=== PATIENT | male | born 1950 | race Caucasian/White ===

== ENCOUNTER 2016-11-15 09:01 | Outpatient (CLI) | payer MEDICARE, OTHER ==
[2016-11-15 12:30] LABS: #Lymphocytes 1.7 thou/uL (1.20-3.40); #Monocytes 0.5 thou/uL (0.11-0.59); #Neutrophils 1.2 thou/uL (1.40-6.50); %Basophils 0.8 % (0.0-1.0); %Lymphocytes 48.8 % (21.0-51.0); %Monocytes 13.5 % (0.0-10.0); %Neutrophils 35.9 % (42.0-75.0); Hemoglobin 15.6 g/dL (14.0-18.0); Mean Corpuscular HGB CONC 33.1 g/dL (32.0-36.0); Mean Corpuscular Hemoglobin 31.4 pg (27.0-31.0); Mean Platelet Volume 6.1 fL (7.4-10.4); Platelet Count 208 thou/uL (130-400); RBC Distribution Width 13.1 % (11.5-14.5); Red Blood Cell (RBC) Count 4.95 mill/uL (4.70-6.10); White Blood Cell (WBC) Count 3.4 thou/uL (4.8-10.8)
[2016-11-15 12:45] LABS: ALT (SGPT) 43 U/L (8-55); AST (SGOT) 36 U/L (5-34); Albumin 4.6 g/dL (3.4-4.8); Alkaline Phosphatase 85 U/L (40-150); Anion Gap 20 mmol/L (10-20); BUN (Urea Nitrogen) 8 mg/dL (8.4-25.7); Bilirubin, Direct 0.3 mg/dL (0.1-0.3); Bilirubin, Total 0.9 mg/dL (0.2-1.2); Calc. Creatinine Clearance 0 mL/min (70-130); Calcium 9.6 mg/dL (7.8-10.44); Carbon Dioxide 22 mmol/L (23-31); Cardiac Risk 3.8 (Less than 4.5); Chloride 102 mmol/L (98-107); Cholesterol 168 mg/dl (< 200 Desired); Estimated GFR-MDRD 77; Glucose 87 mg/dL (80-115); HDL Cholesterol 44 mg/dL (>60 Neg Risk); LDL Cholesterol, Calculated 110 mg/dL; Potassium 4.5 mmol/L (3.5-5.1); Protein, Total 7.8 g/dL (5.8-8.1); Sodium 139 mmol/L (136-145); Triglycerides 71 mg/dL (Less than 150)
[2016-11-15 13:09] LABS: PSA-Asymptomatic (SCREENING) 1.66 ng/mL (0-4.0); Thyroid Stimulating Hormone 3.5442 uIU/mL (0.35-4.94)
[2016-11-15 13:31] LABS: Hemoglobin A1c 5.2 % (4.0-6.0)
== END 2016-11-15 09:02 | disposition home or self-care (01) ==
LOC: NAVSJIPCSP 09:01
PROVIDERS: ATTEND Family Medicine
DX: N63 Unspecified lump in breast (principal); R53.82 Chronic fatigue, unspecified
CPT/HCPCS: 36415; 80048; 80061; 80076; 83036; 84403; 84443; 85025; G0103

== ENCOUNTER 2018-08-04 08:05 | Outpatient (CLI) | payer MEDICARE, OTHER ==
--- NOTE | 2018-08-04 08:48 | ULT ---
COMPLETE ABDOMEN ULTRASOUND: INDICATIONS: Elevated LFTs with gastroesophageal reflux disease. FINDINGS: The liver is mildly echogenic. The liver measures 16 cm in greatest longitudinal dimension. The visualized aorta and IVC are within normal limits. The gallbladder is surgically absent. The common bile duct measures 5 mm. The visualized aspects of the pancreas are unremarkable. The spleen is enlarged, measuring 14 cm. The right kidney measures 12.0 x 5.2 x 4.7 cm. The left kidney measures 11.4 x 5.3 x 5.2 cm. No foc al renal lesion or hydronephrosis is evident. IMPRESSION: 1. Mild fatty infiltration. 2. Mild splenomegaly. 3. Cholecystectomy. POS: [facility]
== END 2018-08-04 08:06 | disposition home or self-care (01) ==
LOC: NAV ULT 08:05
PROVIDERS: ATTEND Family Medicine
DX: R05 Cough (principal); J98.4 Other disorders of lung; K21.9 Gastro-esophageal reflux disease without esophagitis; R74.8 Abnormal levels of other serum enzymes; R16.1 Splenomegaly, not elsewhere classified; K76.0 Fatty (change of) liver, not elsewhere classified; Z90.49 Acquired absence of other specified parts of digestive tract
CPT/HCPCS: 76700

== ENCOUNTER 2018-08-04 08:19 | Outpatient (CLI) | payer MEDICARE, OTHER ==
--- NOTE | 2018-08-04 09:00 | RAD ---
PA AND LATERAL VIEWS CHEST: Date: 08/04/18 HISTORY: Cough. FINDINGS: The heart size is normal. The lungs are expanded without focal areas of consolidation, pneumothoraces , or pleural effusions. There are degenerative changes in the spine. IMPRESSION: No radiographic evidence of acute cardiopulmonary process. POS: [facility]
== END 2018-08-04 08:20 | disposition home or self-care (01) ==
LOC: NAV RAD 08:19
PROVIDERS: ATTEND Family Medicine
DX: R05 Cough (principal); J98.4 Other disorders of lung
CPT/HCPCS: 71046; 76700

== ENCOUNTER 2020-05-12 10:23 | Outpatient (CLI) | payer MEDICARE | END 2020-05-12 10:24 | disposition home or self-care (01) | LOC: NAV LABSP 10:23 | PROVIDERS: ATTEND Family Medicine | DX: R41.0 Disorientation, unspecified (principal); Z72.89 Other problems related to lifestyle | CPT/HCPCS: 82140 ==